=== PATIENT | male | born 1945 ===

== ENCOUNTER 2022-12-09 13:51 | Observation (INO) | payer MEDICARE, OTHER ==
[~2022-12-09] VITALS: Ht 180.3 cm; Wt 91.0 kg
[2022-12-09 14:56] VITALS: BP 165/95
[2022-12-09 15:00] VITALS: BP 165/95
[2022-12-09] MEDS ORDERED: C COMPLEX1000 M1 PO (15:06)
[2022-12-09] MEDS ORDERED: VITAMIN D310 MC1 PO (15:06)
[2022-12-09] MEDS ORDERED: TOCO1000 PO (15:07)
[2022-12-09] MEDS ORDERED: MULTI-VITAMIN1 EAC2 PO (15:07)
[2022-12-09] MEDS ORDERED: IBUP200 PO (15:08)
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
[2022-12-09 17:05] LABS: Bun/Creatinine Ratio 18.8 (12.0-20.0); Creatinine, Blood 0.8 mg/dL (0.60-1.20); Potassium, Blood 3.8 mmol/L (3.5-5.5)
[2022-12-09 17:41] VITALS: BP 145/96
--- NOTE | 2022-12-09 18:08 | NUR ---
End of shift note. Pt denies CP. Last trop was 575 which was called to . Next draw for 1999. Second part of the stress test is scheduled for tomorrow (12/10). Hep gtt continues to infused.
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
[2022-12-09 18:56] LABS: Anti-Xa UFH, PHA Monitoring 0.24 IU/mL
[2022-12-09 21:13] VITALS: BP 136/95
[2022-12-09 23:04] VITALS: BP 121/88
[2022-12-10 01:20] LABS: Hematocrit 40.8 % (37.0-53.0); Hemoglobin 13.9 g/dL (13.5-17.5); Mean Corpuscular HGB 31.7 pg (26.0-34.0); Mean Corpuscular HGB Conc 34.1 g/dL (31.5-36.5); Mean Corpuscular Volume 93 fL (80-100); Mean Platelet Volume 8.9 fL (9.1-12.4); Platelet Count 177 K/mm3 (150-400); RDW Coefficient Variation 12.6 % (11.7-14.2); RDW Standard Deviation 43.3 fL (35.1-46.3); Red Blood Cell Count 4.39 M/mm3 (4.30-5.90); White Blood Cell Count 8.71 K/mm3 (4.00-11.30)
[2022-12-10 01:56] LABS: Albumin, Blood 3.3 g/dL (3.4-5.0); Anion Gap 4 mmol/L (6-16); Blood Urea Nitrogen 19 mg/dL (8-24); Bun/Creatinine Ratio 22.2 (12.0-20.0); CO2, Blood 28 mmol/L (21-32); Calcium, Blood 8.6 mg/dL (8.5-10.1); Chloride, Blood 108 mmol/L (98-108); Creatinine, Blood 0.86 mg/dL (0.60-1.20); Glomerular Filtration Rate 90 (60-); Glucose, Blood 118 mg/dL (70-99); Phosphorus, Blood 2.6 mg/dL (2.5-4.9); Potassium, Blood 4.1 mmol/L (3.5-5.5); Sodium, Blood 140 mmol/L (136-145)
[2022-12-10 04:00] VITALS: BP 140/102
--- NOTE | 2022-12-10 07:25 | NUR ---
SHIFT SUMMARY PATIENT ALERT AND ORIENTED X4. INDEPENDENT IN ROOM. PATIENT HAD AN EPISODE OF CHEST PAIN, EKG OBTAINED AND PATIENT MEDICATED WITH NITRO. CHEST PAIN RESOLVED AFTER ONE DOSE. VITAL SIGNS STABLE. PATIENT ON ROOM AIR. PATIENT ASSESSED FOR SOURCED OF IGNITION. WILL CONTINUE TO MONITOR. CALL LIGHT WITHIN REACH.
[2022-12-10 08:07] VITALS: BP 139/96
--- NOTE | 2022-12-10 10:29 | NUR ---
PT HEADED DOWN TO [facility]PERATOR FOR STRESS TEST AT 1022 VIA WHEELCHAIR.
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
--- NOTE | 2022-12-10 11:17 | NUR ---
LEXISCAN 0.4 MG IV GIVEN FOR STRESS TEST ORDERED. PIV FLUSHED AND LOCKED.
[2022-12-10 12:52] VITALS: BP 136/91
[2022-12-10] MEDS ORDERED: AMLO5 PO (17:45)
[2022-12-10] MEDS ORDERED: ATORVASTATIN CA40 M1 PO (17:47)
[2022-12-10] MEDS ORDERED: NITR.4SL SL (17:48)
[2022-12-10] MEDS ORDERED: ASPI81CH PO (17:49)
--- NOTE | 2022-12-10 18:22 | NUR ---
DISCHARGE UPDATE THIS RN ATTEMPTED TO GO OVER DISCHARGE PACKET WITH PT AND PT AT 1824. PT REFUSED TO GO OVER INSTRUCTIONS AND STATED "YEAH, I CAN READ THIS. WHICH ONE DO I SIGN." THIS RN TRIED TO INFORM PT THAT THE DISCHARGE INSTRUCTIONS ARE IMPORTANT, PT REFUSED AGAIN AND PULLED OUT SIGNATURE PAPER AND SIGNED IT. PT THEN REQUESTED IV'S TO BE REMOVED. IV'S REMOVED. PT WALKED OUT OF PCU UNIT IN A RUSHED MANNER STATING "WE GOT TO GET OVER THOSE [place] BEFORE IT GETS DARKS." PT LEFT UNIT AT 1825.
[2022-12-13 00:08] LABS: HEMOGLOBIN A1C 6.2 % (4.8-5.6)
== END 2022-12-10 18:30 | disposition home or self-care (01) ==
LOC: PCU 13:51
PROVIDERS: Internal Medicine; ADMIT Hospitalist
DX: I21.4 Non-ST elevation (NSTEMI) myocardial infarction (principal); R73.9 Hyperglycemia, unspecified
CPT/HCPCS: 36415; 36416; 78452; 80048; 80069; 83036; 84484; 85027; 85520; 85730; 93005; 93010; 93017; 96374; 96376; A9270; A9500; G0378; J1644; J2785